=== PATIENT | male | born 1980 | race Caucasian/White ===

== ENCOUNTER 2017-08-17 15:10 | Emergency (ER) | payer OTHER ==
[~2017-08-17] VITALS: Ht 172.7 cm; Wt 106.6 kg
[~2017-08-17 15:10] MED LIST: ALLERGY10 MG; AMOXICILLIN875 MG PO; DOXYCYCLINE 10100 MG PO; EXCEDRIN CAPLE1 EACH; IBUPROFEN 200200 M1; KEFLEX500 MG PO; LISINOPRIL10 MG PO; MODAFINIL100 MG PO; MUCINEX DM TABL1 TA1; NOHOMEMEDICATIONS; NORCO 5-325 TA1 EACH PO; PERCOCET PO; PERIDEX 0.12%473 M1 SSP; PREDNISONE 20 M20 M1 PO; VITAMIN D3400 UNIT PO; ZPAK PO
[2017-08-17] MEDS ORDERED: ZYRTEC10 M5 PO (15:54)
[2017-08-17] MEDS ORDERED: FLONASE 0.05%50 MCG NASAL (15:55)
[2017-08-17] MEDS ORDERED: NAPROSYN500 MG PO (16:14)
[2017-08-17] MEDS ORDERED: MEDROLDOSEPACK PO (16:14)
[2017-08-17 16:31] VITALS: BP 114/64
== END 2017-08-17 16:32 | disposition home or self-care (01) ==
LOC: M.ERS 15:10
DX: M25.80 Other specified joint disorders, unspecified joint (principal); M77.41 Metatarsalgia, right foot; I10 Essential (primary) hypertension

== ENCOUNTER 2018-05-13 20:24 | Emergency (ER) | payer OTHER ==
[~2018-05-13] VITALS: Ht 172.7 cm; Wt 113.4 kg
[~2018-05-13 20:24] MED LIST changes: +FLONASE 0.05%50 MCG NASAL; +MEDROLDOSEPACK PO; +NAPROSYN500 MG PO; +ZYRTEC10 M5 PO
[2018-05-13 20:50] LABS: ABSOLUTE EOSINOPHILS 0.1 thou/uL (0.0-0.7); ABSOLUTE MONOCYTES 0.5 thou/uL (0.0-1.2); ABSOLUTE NEUTROPHILS 5.1 thou/uL (1.6-8.1); BASOPHILS 0.5 %; EOSINOPHILS 1.5 %; HEMATOCRIT 44.6 % (42.0-52.0); HEMOGLOBIN 15.4 gm/dL (14.0-18.0); LYMPHOCYTES 15.4 %; MCHC 34.5 g/dL (28.0-37.0); MCV 87.2 fL (80.0-100.0); MONOCYTES 7.9 %; MPV 7.9 fl. (7.2-11.1); NUCLEATED RBCS 0 /100WBC; PLATELET COUNT* 265 thou/uL (150-400); POLYS 74.7 %; RBC 5.12 mil/uL (4.50-6.00); WBC 6.8 thou/uL (4.0-11.0)
[2018-05-13 21:00] LABS: PROTIME 10.5 Seconds (9.20-11.50)
[2018-05-13 21:05] LABS: ALBUMIN 3.9 g/dL (3.4-5.0); ALKALINE PHOSPHATASE 64 U/L (46-116); ANION GAP 8 mmol/L (7-16); BUN 17 mg/dL (7-18); CALCIUM 8.4 mg/dL (8.5-10.1); CHLORIDE 98 mmol/L (98-107); CO2 25 mmol/L (21-32); CREATININE 1.1 mg/dL (0.6-1.3); GLUCOSE 115 mg/dL (70-99); LIPASE 248 U/L (73-393); NT-PRO BRAIN NAT PEPTIDE 12 pg/mL (<300); POTASSIUM 3.8 mmol/L (3.5-5.1); SGOT 32 U/L (15-37); SGPT 85 U/L (30-65); SODIUM 131 mmol/L (136-145); TOTAL BILIRUBIN 0.6 mg/dL (<0.1-1.0); TOTAL PROTEIN 7.7 g/dL (6.4-8.2); TROPONIN-I LEVEL <0.06 ng/mL (<0.06)
[2018-05-13 21:34] LABS: URINE BILIRUBIN NEGATIVE (Negative); URINE BLOOD TRACE (Negative); URINE CLARITY CLEAR; URINE COLOR YELLOW; URINE GLUCOSE-RANDOM NEGATIVE (Negative); URINE KETONES NEGATIVE (Negative); URINE LEUKOCYTES-REFLEX NEGATIVE (Negative); URINE NITRITE-REFLEX NEGATIVE (Negative); URINE PROTEIN NEGATIVE (Negative); URINE UROBILINOGEN 0.2 E.U./dl (0.2-1.0)
[2018-05-13 21:40] LABS: AMP/METHAMP Negative (Negative); BARBITURATES Negative (Negative); BENZODIAZEPINES Negative (Negative); COCAINE Negative (Negative); METHADONE Negative (Negative); OPIATES Negative (Negative); PCP Negative (Negative); THC Negative (Negative)
[2018-05-13] MEDS ORDERED: ZOFRAN ODT4 MG PO (23:44)
[2018-05-14] VITALS: BP 114/96
--- NOTE | 2018-05-14 11:34 | EKG ---
[place] [address] ELECTROCARDIOGRAM REPORT Name: RICKIEJE ZAMBRANO [id number] Admission: 05/13/18 Attend Phys: Discharge: 05/14/18 Date of : 84 Report #: [id number] THIS REPORT FOR: //name// [facility] ED Test Date: 2018-05-13 Test Time: 20:27:58 Pat Name: JE DAMIAN Department: Room: Gender: M Drafter Detail: TREVIN : 1980 Requested By: Rose Mcgovern Order Number: [id number] MD: Champ Henderson Measurements Intervals [place] Rate: 105 P: 7 CO: 192 QRS: 47 QRSD: 88 T: 29 QT: 301 QTc: 398 Interpretive Statements Sinus tachycardia Baseline wander in lead(s) V5 No previous ECG available for comparison Electronically Signed On 05-14-2018 11:34:52 [employer] by Champ Henderson [email or web address] <ELECTRONICALLY SIGNED> By: Champ Henderson MD, [facility] 05/14/18 1134 26 26 Champ Henderson MD, FACC /EPI
== END 2018-05-14 | disposition home or self-care (01) ==
LOC: M.ERS 20:24
PROVIDERS: Emergency Medicine
DX: R07.89 Other chest pain (principal); R10.13 Epigastric pain; G47.30 Sleep apnea, unspecified; I10 Essential (primary) hypertension; E78.00 Pure hypercholesterolemia, unspecified; Z88.2 Allergy status to sulfonamides; Z88.8 Allergy status to other drugs, medicaments and biological substances; Z79.899 Other long term (current) drug therapy